=== PATIENT | female | born 1945 | race Caucasian/White ===

== ENCOUNTER 2023-09-03 09:50 | Outpatient (CLI) | payer MEDICARE, SELFPAY ==
[2023-09-03 15:42] LABS: Alanine Aminotransferase 26 U/L (6-35); Albumin Level 4.2 g/dL (3.5-5.1); Alkaline Phosphatase 67 U/L (38-126); Anion Gap 3 mmol/L (4-12); Aspartate Amino Transferase 34 U/L (14-36); Bilirubin,Total 0.5 mg/dL (0.2-1.3); Blood Urea Nitrogen 18 mg/dL (7-17); Calcium 9.1 mg/dL (8.4-10.2); Carbon Dioxide 29 mmol/L (22-30); Chloride 107 mmol/L (98-107); Cholesterol 229 mg/dL (0-200); Estimated Glomerular Filt Rate > 60; Glucose 100 mg/dL (65-110); HDL Direct 47 mg/dL; Potassium 3.8 mmol/L (3.4-5.0); Sodium 139 mmol/L (137-145); Triglycerides 122 mg/dL (<150)
[2023-09-03 15:53] LABS: LDL Cholesterol Direct 142 mg/dL
[2023-09-03 16:22] LABS: Creatinine Urine 125.3 mg/dL
[2023-09-03 16:26] LABS: MALB Creatinine Ratio 5.2 mg/g (0-30); Microalbumin Urine Random 6.5 mg/L (0-16.7)
[2023-09-03 16:36] LABS: Hemoglobin A1C 6.3 % (<5.7)
== END 2023-09-03 09:51 | disposition home or self-care (01) ==
LOC: ANHGOSHLAB 09:52
PROVIDERS: PCP Family Medicine; Visit Provider Family Medicine
DX: E78.5 Hyperlipidemia, unspecified (principal); E11.9 Type 2 diabetes mellitus without complications; Z13.220 Encounter for screening for lipoid disorders; Z13.228 Encounter for screening for other metabolic disorders; Z13.29 Encounter for screening for other suspected endocrine disorder
CPT/HCPCS: 36415; 80053; 80061; 82043; 83036; 84443

== ENCOUNTER 2024-02-07 00:25 | Day surgery (SDC) | payer MEDICARE, SELFPAY ==
[2024-01-25 12:51] VITALS: BMI 31.0
[2024-02-07 10:48] VITALS: BP 151/80; PULSE 85; RESP 20; TEMP 35.9; O2SAT 98; BMI 31.4
[2024-02-07] MEDS: LACTATED RINGERS 1,000 ML 150 ML IV CONT (11:12)
--- NOTE | 2024-02-07 11:32 | WPDANESEPPF ---
Anes - Initial Pre Proc Eval Procedure: Operation Date: 02/07/24 11:30 Proposed Procedures p Colonoscopy - Lior Rebollar MD Date/Time: 02/07/24 11:32 Surgeon: Lior Rebollar MD Pre Op Diagnosis: fecal abnormalities Patient Data Age: 78 Gender: F Height: 1.63 m Weight: 82.9 kg Last Vital Signs Temp 35.9 C L 02/07/24 10:48 Pulse 85 02/07/24 10:48 Resp 20 02/07/24 10:48 BP 151/80 H 02/07/24 10:48 Pulse Ox 98 02/07/24 10:48 O2 Del Method Room Air 02/07/24 10:48 Allergies Allergy/AdvReac Type Severity Reaction Status Date / Time codeine Allergy Severe Insomnia Verified 02/07/24 10:58 Home Medications Medication Instructions Recorded Confirmed Type biotin 5,000 mcg disintegrating 10,000 mcg PO DAILY 09/03/23 02/07/24 History tablet multivitamin 1 tablet PO DAILY 09/03/23 02/07/24 History Patient hx anesthesia problems: none Family hx anesthesia problems: none Results Review: All pre-operative results and documents have been reviewed as part of the pre-operative evaluation. [facility] Past Medical History Medical History (Updated 02/07/24 @ 11:33 by Guille Maldonado MD) Obesity Family History Family History Father Cerebrovascular accident Mother Lung cancer Diabetes mellitus Hypertension Grandparent Skin cancer Grandparent Uterine cancer Social History Social History Smoking status: Never smoker Alcohol intake: current Drinks per week: 1 Alcohol use details: pt reports to drink wine occasionally Substance use: never Living arrangements: with family Additional living arrangements comments: lives with Occupation/Education: retired Spiritual care concerns: No Anes - Eval Final PreProcedure Day of Procedure 02/07/24 11:32 Patient weight: obese Heart: regular rate and rhythm Lungs: clear to auscultation Airway: Mallampati scale class II Neurological: alert and oriented Last oral intake: >/= 8 hours ASA classification: II Emergent: no Anesthetic plan: proceed Anesthesia type and monitoring: general GIVS and standard monitoring Results Review: All pre-operative results and documents have been reviewed as part of the pre-operative evaluation. Informed Consent: The patient's anesthetic plan and its attendant risks and benefits were discussed with the patient/family/POA. Questions were solicited and answers provided to the satisfaction of the patient/family/POA.
[2024-02-07 13:38] VITALS: BP 122/62; PULSE 76; RESP 19; O2SAT 100
--- NOTE | 2024-02-07 14:09 | PM.IMHP ---
H&P: HPI History of Present Illness Date/Time: 02/07/24 14:09 Chief Complaint: Positive Cologuard test Narrative: this patient has been undergoing serial Cologuard tests, all negative, but the last one came back positive. She is here for her 1st screening colonoscopy [facility] Past Medical History Medical History (Updated 02/07/24 @ 14:10 by Lior Rebollar MD) Obesity Family History Family History Father Cerebrovascular accident Mother Lung cancer Diabetes mellitus Hypertension Grandparent Skin cancer Grandparent Uterine cancer Social History Social History Smoking status: Never smoker Alcohol intake: current Drinks per week: 1 Alcohol use details: pt reports to drink wine occasionally Substance use: never Living arrangements: with family Additional living arrangements comments: lives with Occupation/Education: retired Spiritual care concerns: No Meds Home Medications and Allergies Home Medications Medication Instructions Recorded Confirmed Type biotin 5,000 mcg disintegrating 10,000 mcg PO DAILY 09/03/23 02/07/24 History tablet multivitamin 1 tablet PO DAILY 09/03/23 02/07/24 History Allergies Allergy/AdvReac Type Severity Reaction Status Date / Time codeine Allergy Severe Insomnia Verified 02/07/24 10:58 Vital Signs Vital Signs - 24 hr 02/07/24 10:48 Temperature 96.7 F L Pulse Rate 85 Respiratory Rate 20 Blood Pressure 151/80 H Pulse Oximetry 98 Oxygen Delivery Room Air Assessment and Plan Assessment and plan (1) Positive colorectal cancer screening using Cologuard test: Code(s): R19.5 - Other fecal abnormalities Status: Acute
--- NOTE | 2024-02-07 14:12 | PM.IMHP ---
H&P: HPI History of Present Illness Date/Time: 02/07/24 14:12 Chief Complaint: positive cologuard test PMFSH Past Medical History Medical History (Updated 02/07/24 @ 14:10 by Lior Rebollar MD) Obesity Family History Family History Father Cerebrovascular accident Mother Lung cancer Diabetes mellitus Hypertension Grandparent Skin cancer Grandparent Uterine cancer Social History Social History Smoking status: Never smoker Alcohol intake: current Drinks per week: 1 Alcohol use details: pt reports to drink wine occasionally Substance use: never Living arrangements: with family Additional living arrangements comments: lives with Occupation/Education: retired Spiritual care concerns: No Meds Home Medications and Allergies Home Medications Medication Instructions Recorded Confirmed Type biotin 5,000 mcg disintegrating 10,000 mcg PO DAILY 09/03/23 02/07/24 History tablet multivitamin 1 tablet PO DAILY 09/03/23 02/07/24 History Allergies Allergy/AdvReac Type Severity Reaction Status Date / Time codeine Allergy Severe Insomnia Verified 02/07/24 10:58 Vital Signs Vital Signs - 24 hr 02/07/24 10:48 Temperature 96.7 F L Pulse Rate 85 Respiratory Rate 20 Blood Pressure 151/80 H Pulse Oximetry 98 Oxygen Delivery Room Air Assessment and Plan Assessment and plan (1) Positive colorectal cancer screening using Cologuard test: Code(s): R19.5 - Other fecal abnormalities Status: Acute Plan The patient is deemed a good candidate for the procedure. Consent signed. Will proceed.
[2024-02-07 14:48] VITALS: BP 118/67; PULSE 77; RESP 25; O2SAT 100
[2024-02-07 14:58] VITALS: BP 134/58; PULSE 74; RESP 18; O2SAT 100
== END 2024-02-07 15:05 | disposition home or self-care (01) ==
PROVIDERS: PCP Family Medicine; Referring Provider Family Medicine; Visit Provider Internal Medicine Gastroenterology
PROC: 0DJD8ZZ Inspection of Lower Intestinal Tract, Via Natural or Artificial Opening Endoscopic (ICD-10-PCS; CPT 45378; principal; 2024-02-07 11:30)
DX: D12.0 Benign neoplasm of cecum (principal); D12.2 Benign neoplasm of ascending colon; K64.0 First degree hemorrhoids; E66.9 Obesity, unspecified; Z68.31 Body mass index [BMI] 31.0-31.9, adult; Z80.1 Family history of malignant neoplasm of trachea, bronchus and lung; Z84.0 Family history of diseases of the skin and subcutaneous tissue; Z80.49 Family history of malignant neoplasm of other genital organs; Z82.49 Family history of ischemic heart disease and other diseases of the circulatory system
CPT/HCPCS: 45385; 88305; J2003; J2704; J7120

== ENCOUNTER 2024-06-09 13:33 | Outpatient (CLI) | payer MEDICARE, SELFPAY ==
--- NOTE | ~2024-06-09 | XR_ITS ---
XR knee LT min 4V Ordering provider: Agnes Woo APRN History: . S89.92XA - Unspecified injury of left lower leg, initial ... . Comparison: None. FINDINGS: BONES: No acute fracture or dislocation. JOINT SPACES: Normal. SOFT TISSUES: Normal. IMPRESSION: No acute osseous abnormality left knee. Reviewed, dictated and finalized at location A. ING CARRIER
== END 2024-06-09 13:34 | disposition home or self-care (01) ==
PROVIDERS: PCP Nurse Practitioner Family; Visit Provider Nurse Practitioner Family
DX: S89.92XA Unspecified injury of left lower leg, initial encounter (principal); X58.XXXA Exposure to other specified factors, initial encounter
CPT/HCPCS: 73564

== ENCOUNTER 2025-03-21 14:12 | Outpatient (CLI) | payer MEDICARE, SELFPAY ==
[2025-03-21 14:27] LABS: Hematocrit 43.0 % (37.0-47.0); Hemoglobin 13.6 g/dL (12.0-15.0); Mean Corpuscular HGB Conc 31.6 g/dl (32-36); Mean Corpuscular Hemoglobin 30.6 pg (26-34); Mean Corpuscular Volume 96.6 fl (80-100); Platelet Count Result 231 k/mm3 (150-375); Red Blood Count 4.45 M/mm3 (4.2-5.4); White Blood Count 6.9 K/mm3 (4.5-10.0)
[2025-03-21 14:41] LABS: Alanine Aminotransferase 19 U/L (6-35); Albumin Level 4.2 g/dL (3.5-5.1); Alkaline Phosphatase 70 U/L (38-126); Anion Gap 6 mmol/L (4-12); Aspartate Amino Transferase 24 U/L (14-36); Bilirubin,Total 0.6 mg/dL (0.2-1.3); Blood Urea Nitrogen 18 mg/dL (7-17); Calcium 9.7 mg/dL (8.4-10.2); Carbon Dioxide 29 mmol/L (22-30); Chloride 105 mmol/L (98-107); Cholesterol 242 mg/dL (0-200); Estimated Glomerular Filt Rate > 60; Glucose 107 mg/dL (65-110); HDL Direct 43 mg/dL; Potassium 4.4 mmol/L (3.4-5.0); Sodium 140 mmol/L (137-145); Total Protein 7.7 g/dL (6.3-8.2); Triglycerides 95 mg/dL (<150)
[2025-03-21 16:15] LABS: Hemoglobin A1C 6.4 % (<5.7)
--- OUTSIDE RECORDS SUMMARY | 2025-03-21 16:57 | XMS_ITS | Encounter Summary ---
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 Press Operator Name Role Phone Unavailable Primary Care Provider Unavailabl e Encounter Details Date Type Department Care Team (Late st Contact Info) Description 08/07/2024 Lab Requisition [facility] - DermPath Lab [address] [place] [id number] Demetrice Walter APRN-CNP [facility] DERMATOLOGY [address] [place] [phone] Dermatitis, unspecified Social History Tobacco Use Types Packs/Day Years Used Date Smoking Tobacco: Never Assessed Comments Unknown Sex and Gender Information Value Date Recorded Sex Assigned at Not on file 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 Gender Identity Not on file Sexual Orientation Not on file documented as of this encounter Plan of Treatment Not on file documented as of this encounter Procedures Procedure Name Priority Date/Time Associated Diagnosis Comments DERMATOPATHOLOGY Routine 08/07/2024 12:0 0 AM CDT Dermatitis, unspecified documented in this encounter Results * DERMATOPATHOLOGY (08/07/2024 12:00 AM CDT) Case Report Dermatopathology Report Case: [id number] Authorizing Provider: Demetrice Walter, Collected: 08/07/2024 12:00 AM 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 The specimen consists of a punch biopsy measuring 4x4x5 mm. Jar 0. 4:08 PM T DERMATOPATHOLOGY LABORATORY Microscopic Description Specimen A. SKIN, scalp: The specimen is submitted per alopecia protocol. Sections show a non-scarring alopecia. There is a shift from anagen to non-anagen hairs. There is an overall decrease in follicular size as well as an increased number of vellus hairs. There is relative hypertrophy of sebaceous glands. A mild perifollicular lymphocytic inflammatory infiltrate is present in the superficial dermis. Original and deeper sections were reviewed. Additional deeper sections were obtained and reviewed. 4:08 PM T DERMATOPATHOLOGY LABORATORY Disclaimer An external and internal positive and negative controls are appropriate for the histochemical, immunohistochemical and immunofluorescence stain(s) in this case (if any), except where stated explicitly. The performance characteristics of the stain(s) cited in this report were developed and its performance characteristic determined by the Dermatopathology Laboratory at [facility], directed by Dr. Nuria Claire. These tests need not be, and therefore are not, approved by the [place] Food and Drug Administration. The tests are used for clinical purposes. Billing Codes Specimen Charges Stain Charges 23265 1 4:08 PM CDT DERMATOPATHOLOGY LABORATORY Embedded Images 4:08 PM CDT DERMATOPATHOLOGY LABORATORY Pathology/Cytolog y TISSUE SPECIMEN FROM SKIN / Unknown 08/07/2024 08/08/2024 3:48 PM CDT Demetrice Walter APRN-[facility] LAB - PATHOLOGY/CY TOLOGY ORDERABLES Final Result DERMATOPATHOLOGY LABORATORY [facility] - Department of Dermatology [address] [phone] documented in this encounter Visit Diagnoses Diagnosis Dermatitis, unspecified documented in this encounter
--- OUTSIDE RECORDS SUMMARY | 2025-03-21 16:57 | XMS_ITS | Clinical Summary ---
Author Organization [facility] Address [address] [place] [address] Care Team Providers Care Plant Maintenance Manager Name Role Phone Unavailable Primary Care Provider Unavailabl e Source Comments [facility],non-owned Affiliates and Associated Physician Practices is amultiple site organization consisting of ambulatory clinics and hospital sitesin [place], [place], [place] and [place]. This disclosure is being madepursuant to the Care Everywhere program and may not contain all information available regarding this patient. Last updated 17.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 Gender Identity Not on file Sexual Orientation Not on file Plan of Treatment Health Maintenance Due Date Last Done Comments BONE DENSITY TESTING 1945 DTAP/TDAP/TD VACCINES (1 - Tdap) 11/11/1962 PNEUMOCOCCAL VACCINE 50+ (1 of 1 - PCV) 11/11/1993 ZOSTER VACCINE (1 of 2) 11/11/1993 Respiratory Syncytial Virus (RSV) Vaccine Pt: or over 60 yrs (1 - 1-dose 75+ series) 11/11/2018 DEPRESSION SCREENING 04/05/2024 MEDICARE AWV CALENDAR YEAR 2024 COVID-19 VACCINE (1 - 2024-2 6 season) 2024 INFLUENZA VACCINE (#1) 2024 HEPATITIS B VACCINE Aged Out No longe r eligible based on patient's age to complete this topic HIB VACCINE Aged Out No longer eligi ble based on patient's age to complete this topic HPV VACCINE Aged Out No longer eligi ble based on patient's age to complete this topic MENINGOCOCCAL (Group B) VACC INE SHARED DECISION-MAKING Aged Out No longer eligibl e based on patient's age to complete this topic MENINGOCOCCAL GROUPS A/C/Y/W VACCINE Aged Out No longer eligible b ased on patient's age to complete this topic [address] [place] [address] SELF PAY NO INSURANCE Member Subscriber Plan / Payer (Ef fective for All Dates) Name:Taye Gaxiola Member ID:Not on file Relation to Subscriber:Not on file Name:TAYE GAXIOLA Subscriber ID:Not on file (Home) Address[address] [place] [address] Payer ID:Not on file Group ID:Not on file Type:Self Pay Address: [place], [place] [employer] MEDICARE ADV HMO & PPO
== END 2025-03-21 14:13 | disposition home or self-care (01) ==
PROVIDERS: PCP Nurse Practitioner Family; Visit Provider Nurse Practitioner Family
DX: E78.5 Hyperlipidemia, unspecified (principal); R73.03 Prediabetes; M81.0 Age-related osteoporosis without current pathological fracture; K21.9 Gastro-esophageal reflux disease without esophagitis; E55.9 Vitamin D deficiency, unspecified; Z76.89 Persons encountering health services in other specified circumstances
CPT/HCPCS: 36415; 80053; 80061; 82306; 83036; 85027